=== PATIENT | female | born 2000 | race Two or more races ===

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

== ENCOUNTER 2021-05-31 11:51 | Emergency (ER) | payer MEDICAID ==
[~2021-05-31] VITALS: Ht 149.9 cm; Wt 46.3 kg
[2021-05-31] MEDS ORDERED: SODIUM CHLORIDE 0.9% 500 ML IV ONE (12:00)
[2021-05-31 12:49] LABS: Basophils # (auto) 0 10 ^3/uL (0-0.2); Basophils % (auto) 0.5 % (0.0-2.0); Eosinophils # (auto) 0.1 10 ^3/uL (0-0.8); Hematocrit 40.1 % (36.0-46.0); Hemoglobin 13.4 g/dL (12.2-16.2); Lymphocytes # (auto) 1.4 10 ^3/uL (0.4-5.4); Lymphocytes % (auto) 15.2 % (10.0-50.0); Mean Corpuscular Hemoglobin 28.3 pg (28.0-32.0); Mean Corpuscular Hgb Conc. 33.3 g/dL (32.0-36.0); Mean Corpuscular Volume 84.8 fL (80.0-100.0); Monocytes # (auto) 0.5 10 ^3/uL (0-1.3); Monocytes % (auto) 5.4 % (0.0-12.0); Neutrophils # (auto) 7.1 10 ^3/uL (1.6-8.6); Neutrophils % (auto) 77.9 % (37.0-80.0); Nucleated Red Blood Cells % 0.1 %; Red Blood Cells 4.73 10^6/uL (4.0-5.20); Red Cell Distribution Width 22.8 % (11.8-14.3); White Blood Cell 9.1 10^3/uL (4.4-10.8)
[2021-05-31 13:03] LABS: Albumin 3.8 g/dL (3.4-5.0); Calcium 8.9 mg/dL (8.5-10.1); Potassium 4.5 mmol/L (3.5-5.1)
[2021-05-31 13:05] LABS: BUN/Creatinine Ratio 9.6
[2021-05-31 13:07] LABS: Bilirubin, Total 0.3 mg/dL (0.2-1.0); Total Protein 7.8 g/dL (6.4-8.2)
[2021-05-31 13:33] LABS: Urine Amorphous Crystal MOD /hpf (None Seen); Urine Bacteria FEW /hpf (None Seen); Urine Blood Negative /uL (Negative); Urine Mucus FEW (None Seen); Urine WBC 59 /hpf (0 - 5)
[2021-05-31] MEDS ORDERED: CEPH-322 PO (14:14)
[2021-05-31 14:19] VITALS: BP 137/82
== END 2021-05-31 14:20 | disposition home or self-care (01) ==
LOC: ER 11:51 → EDBD 11:51 → ER 14:20
DX: O26.892 Other specified pregnancy related conditions, second trimester (principal); R10.31 Right lower quadrant pain; R10.32 Left lower quadrant pain; Z3A.19 19 weeks gestation of pregnancy
CPT/HCPCS: 36415; 76805; 80053; 81001; 84702; 85025; 96360; 96361; 99284; J7040

== ENCOUNTER → 2021-10-02 | Outpatient (CLI) | payer MEDICAID ==
[~2021-10-02] MED LIST: CEPH-322 PO
[2021-10-02 12:05] LABS: Basophils # (auto) 0 10 ^3/uL (0-0.2); Basophils % (auto) 0.5 % (0.0-2.0); Eosinophils # (auto) 0.1 10 ^3/uL (0-0.8); Lymphocytes # (auto) 1.2 10 ^3/uL (0.4-5.4); Monocytes # (auto) 0.4 10 ^3/uL (0-1.3); Neutrophils # (auto) 4.4 10 ^3/uL (1.6-8.6); White Blood Cell 6.1 10^3/uL (4.4-10.8)
[2021-10-02 12:07] LABS: Eosinophils % (auto) 1.2 % (0.0-7.0); Hematocrit 28.1 % (36.0-46.0); Lymphocytes % (auto) 19.9 % (10.0-50.0); Mean Corpuscular Volume 78.2 fL (80.0-100.0); Monocytes % (auto) 6.3 % (0.0-12.0); Neutrophils % (auto) 72.1 % (37.0-80.0); Nucleated Red Blood Cells % 0.1 %; Red Blood Cells 3.59 10^6/uL (4.0-5.20); Red Cell Distribution Width 19.3 % (11.8-14.3)
[2021-10-02 12:55] LABS: Alcohol, Urine < 3.0 mg/dL (0-10); Amphetamine Screen, Urine NEGATIVE (NEGATIVE); Barbiturate Scree,Urine NEGATIVE (NEGATIVE); Benzodiazephine Screen, Urine NEGATIVE (NEGATIVE); Cannabinoid Screen, Urine POSITIVE (NEGATIVE); Cocaine Screen, Urine NEGATIVE (NEGATIVE); Opiate Scree,Urine NEGATIVE (NEGATIVE); Phencyclidine Screen, Urine NEGATIVE (NEGATIVE)
[2021-10-03 07:06] LABS: RPR Non Reactive (Non Reactive)
== END | disposition home or self-care (01) ==
LOC: LAB 11:24
PROVIDERS: ATTEND Obstetrics & Gynecology Obstetrics
DX: Z34.00 Encounter for supervision of normal first pregnancy, unspecified trimester (principal); Z31.430 Encounter of female for testing for genetic disease carrier status for procreative management; N39.0 Urinary tract infection, site not specified
CPT/HCPCS: 36415; 80307; 83036; 84112; 84702; 85025; 86592; 86703; 86762; 86850; 86900; 86901; 87086; 87340

== ENCOUNTER → 2021-10-09 | Outpatient (CLI) | payer MEDICAID ==
[2021-10-09 15:40] LABS: Basophils # (auto) 0 10 ^3/uL (0-0.2); Eosinophils % (auto) 0.6 % (0.0-7.0); Monocytes # (auto) 0.7 10 ^3/uL (0-1.3)
[2021-10-09 15:41] LABS: Basophils % (auto) 0.4 % (0.0-2.0); Eosinophils # (auto) 0.1 10 ^3/uL (0-0.8); Hematocrit 27.6 % (36.0-46.0); Hemoglobin 8.5 g/dL (12.2-16.2); Lymphocytes % (auto) 12.5 % (10.0-50.0); Mean Corpuscular Hemoglobin 24.1 pg (28.0-32.0); Mean Corpuscular Hgb Conc. 30.9 g/dL (32.0-36.0); Mean Corpuscular Volume 77.8 fL (80.0-100.0); Monocytes % (auto) 7.9 % (0.0-12.0); Neutrophils # (auto) 6.5 10 ^3/uL (1.6-8.6); Neutrophils % (auto) 78.6 % (37.0-80.0); Red Blood Cells 3.54 10^6/uL (4.0-5.20); Red Cell Distribution Width 19.7 % (11.8-14.3); White Blood Cell 8.2 10^3/uL (4.4-10.8)
[2021-10-09 16:08] LABS: Alcohol, Urine < 3.0 mg/dL (0-10); Amphetamine Screen, Urine NEGATIVE (NEGATIVE); Barbiturate Scree,Urine NEGATIVE (NEGATIVE); Benzodiazephine Screen, Urine NEGATIVE (NEGATIVE); Cannabinoid Screen, Urine POSITIVE (NEGATIVE); Cocaine Screen, Urine NEGATIVE (NEGATIVE); Opiate Scree,Urine NEGATIVE (NEGATIVE); Phencyclidine Screen, Urine NEGATIVE (NEGATIVE)
== END | disposition home or self-care (01) ==
LOC: LAB 15:10
PROVIDERS: ATTEND Obstetrics & Gynecology Obstetrics
DX: Z31.430 Encounter of female for testing for genetic disease carrier status for procreative management (principal); N39.0 Urinary tract infection, site not specified
CPT/HCPCS: 36415; 80307; 85025; 86703; 86762; 86850; 86900; 86901; 87086; 87340

== ENCOUNTER 2021-11-09 09:53 | Observation (INO) | payer MEDICAID ==
[~2021-11-09] VITALS: Ht 149.9 cm; Wt 54.4 kg
[2021-11-09] MEDS ORDERED: PROMETHAZINE HCL 6.25 MG/5 ML ORAL SYRUP PO ONE (11:30)
[2021-11-09] MEDS ORDERED: PREN-96 PO ×2 (11:35)
== END 2021-11-09 12:06 | disposition home or self-care (01) ==
LOC: UNDOADMOB 09:53 → LDRP 09:53
PROVIDERS: ADMIT Obstetrics & Gynecology; ATTEND Obstetrics & Gynecology
DX: O62.9 Abnormality of forces of labor, unspecified (principal); O99.323 Drug use complicating pregnancy, third trimester; F12.90 Cannabis use, unspecified, uncomplicated; Z3A.37 37 weeks gestation of pregnancy
CPT/HCPCS: 59025; 81002; 94760; G0378

== ENCOUNTER 2021-11-09 18:40 | Inpatient (IN) | payer MEDICAID ==
[~2021-11-09] VITALS: Ht 149.9 cm; Wt 57.2 kg
[2021-11-09 11:20] VITALS: BP 129/72
[~2021-11-09 18:40] MED LIST changes: +PREN-96 PO
[2021-11-09] MEDS ORDERED: LIDOCAINE 2%HCL (LOCAL ANESTH.) INJ 10ml MDV IJ PRN (19:00)
[2021-11-09] MEDS ORDERED: BUTORPHANOL TARTRATE 2 MG/1 ML VIAL IV PRN ×2 (19:00)
[2021-11-09] MEDS ORDERED: NS/OXYTOCIN 20UNITS 1,000 ML IV SCH (19:00)
[2021-11-09] MEDS ORDERED: DERMOPLAST 60ML BOTTLE TOP PRN (19:00)
[2021-11-09] MEDS ORDERED: PHISODERM TOP SOLN 240ML BTL TOP PRN (19:00)
[2021-11-09] MEDS ORDERED: LACTATED RINGER'S 1,000 ML IV SCH (19:00)
[2021-11-09] MEDS ORDERED: WITCH HAZEL-GLYCERIN PAD TOP PRN (19:00)
[2021-11-09] MEDS ORDERED: PROMETHAZINE HCL 25 MG/ML 1ML IV PRN (19:00)
[2021-11-09 20:09] LABS: Basophils # (auto) 0 10 ^3/uL (0-0.2); Eosinophils # (auto) 0 10 ^3/uL (0-0.8); Eosinophils % (auto) 0.2 % (0.0-7.0); Lymphocytes # (auto) 1.2 10 ^3/uL (0.4-5.4); Neutrophils # (auto) 6.3 10 ^3/uL (1.6-8.6); Neutrophils % (auto) 78.7 % (37.0-80.0); Nucleated Red Blood Cells % 0.1 %
[2021-11-09 20:11] LABS: Basophils % (auto) 0.5 % (0.0-2.0); Hematocrit 31.9 % (36.0-46.0); Hemoglobin 9.9 g/dL (12.2-16.2); Lymphocytes % (auto) 14.6 % (10.0-50.0); Mean Corpuscular Hemoglobin 22.5 pg (28.0-32.0); Mean Corpuscular Volume 72.4 fL (80.0-100.0); Monocytes # (auto) 0.5 10 ^3/uL (0-1.3)
[2021-11-09] MEDS ORDERED: NS/OXYTOCIN 20UNITS 500 ML IV ONE ×2 (20:15→20:45)
[2021-11-09 20:17] LABS: Albumin 3.1 g/dL (3.4-5.0); Calcium 8.6 mg/dL (8.5-10.1); Potassium 3.4 mmol/L (3.5-5.1)
[2021-11-09 20:20] LABS: BUN/Creatinine Ratio 9.4; Bilirubin, Total 0.3 mg/dL (0.2-1.0); Total Protein 7.2 g/dL (6.4-8.2)
[2021-11-09 20:23] LABS: Red Cell Distribution Width 21.7 % (11.8-14.3)
[2021-11-09 20:32] LABS: INR 0.86 (0.9-1.15); Partial Thromboplastin Time 23.5 sec (24.6-33.4)
[2021-11-09 23:09] LABS: Amphetamine Screen, Urine NEGATIVE (NEGATIVE); Barbiturate Scree,Urine NEGATIVE (NEGATIVE); Benzodiazephine Screen, Urine NEGATIVE (NEGATIVE); Cannabinoid Screen, Urine POSITIVE (NEGATIVE); Cocaine Screen, Urine NEGATIVE (NEGATIVE); Opiate Scree,Urine NEGATIVE (NEGATIVE); Phencyclidine Screen, Urine NEGATIVE (NEGATIVE)
[2021-11-09] MEDS ORDERED: ONDANSETRON ODT 4 MG TAB PO PRN (23:15)
[2021-11-09] MEDS ORDERED: ACETAMINOPHEN 325 MG TAB PO PRN (23:15)
[2021-11-09 23:20] VITALS: BP 129/72
[2021-11-10 03:20] VITALS: BP 127/90
[2021-11-10] MEDS: IBUPROFEN 600 MG TAB PO PRN ×2 (09:04→20:17)
[2021-11-10 11:00] VITALS: BP 115/63
[2021-11-10 15:00] VITALS: BP 118/68
[2021-11-10 19:00] VITALS: BP 124/65
[2021-11-10 23:00] VITALS: BP 126/66
[2021-11-10 23:55] VITALS: BP 125/65
[2021-11-11 07:06] LABS: RPR Non Reactive (Non Reactive)
== END 2021-11-10 23:55 | disposition home or self-care (01) | DRG 560 ==
LOC: OBSVTOIN 18:40 → LDRP 18:40
PROVIDERS: ADMIT Obstetrics & Gynecology; ATTEND Obstetrics & Gynecology
PROC: 10E0XZZ Delivery of Products of Conception, External Approach (ICD-10-PCS; principal; 2021-11-09)
PROC: 0UQMXZZ Repair Vulva, External Approach (ICD-10-PCS; 2021-11-09)
DX: O71.82 Other specified trauma to perineum and vulva (principal); Z37.0 Single live birth; Z20.822 Contact with and (suspected) exposure to COVID-19; Z3A.37 37 weeks gestation of pregnancy
CPT/HCPCS: 36415; 59025; 59409; 80053; 80307; 85025; 85610; 85730; 86592; 86850; 86900; 86901; 94760; 96365; 96366; G0378; J2001

== ENCOUNTER → 2022-11-27 | Outpatient (CLI) | payer MEDICAID ==
[~2022-11-27] MED LIST changes: -CEPH-322 PO; +CEPH250C PO
[2022-11-27 13:47] LABS: Basophils # (auto) 0 10 ^3/uL (0-0.2); Eosinophils # (auto) 0.1 10 ^3/uL (0-0.8); Hemoglobin 9.5 g/dL (12.2-16.2); Lymphocytes # (auto) 1.3 10 ^3/uL (0.4-5.4); Monocytes # (auto) 0.4 10 ^3/uL (0-1.3); Nucleated Red Blood Cells % 0.1 %
[2022-11-27 13:48] LABS: Basophils % (auto) 0.5 % (0.0-2.0); Hematocrit 30.6 % (36.0-46.0); Mean Corpuscular Hemoglobin 23.2 pg (28.0-32.0); Mean Corpuscular Hgb Conc. 30.9 g/dL (32.0-36.0); Mean Corpuscular Volume 74.9 fL (80.0-100.0); Monocytes % (auto) 6.2 % (0.0-12.0); Neutrophils # (auto) 4.9 10 ^3/uL (1.6-8.6); Neutrophils % (auto) 72.3 % (37.0-80.0); Red Blood Cells 4.08 10^6/uL (4.0-5.20); White Blood Cell 6.7 10^3/uL (4.4-10.8)
[2022-11-27 13:52] LABS: Red Cell Distribution Width 20.5 % (11.8-14.3)
[2022-11-27 14:15] LABS: Anisocytosis Slight; Hypochromia Moderate; Platelet Estimate Adequate
[2022-11-27 14:19] LABS: Alcohol, Urine < 3.0 mg/dL (0-10); Amphetamine Screen, Urine NEGATIVE (NEGATIVE); Barbiturate Scree,Urine NEGATIVE (NEGATIVE); Benzodiazephine Screen, Urine NEGATIVE (NEGATIVE); Cannabinoid Screen, Urine POSITIVE (NEGATIVE); Cocaine Screen, Urine NEGATIVE (NEGATIVE); Opiate Scree,Urine NEGATIVE (NEGATIVE)
[2022-11-27 14:27] LABS: Phencyclidine Screen, Urine NEGATIVE (NEGATIVE)
[2022-11-28 06:06] LABS: RPR Non Reactive (Non Reactive)
[2022-11-28 11:07] LABS: Treponema Pallidum Ab LC Non Reactive (Non Reactive)
== END | disposition home or self-care (01) ==
LOC: LAB 13:22
PROVIDERS: ATTEND Obstetrics & Gynecology
DX: Z11.3 Encounter for screening for infections with a predominantly sexual mode of transmission (principal); N39.0 Urinary tract infection, site not specified
CPT/HCPCS: 36415; 80307; 83036; 84112; 84144; 84702; 85025; 86592; 86703; 86762; 86850; 86900; 86901; 87086; 87340

== ENCOUNTER → 2022-12-12 | Outpatient (CLI) | payer MEDICAID ==
[2022-12-12 09:17] LABS: Eosinophils # (auto) 0.1 10 ^3/uL (0-0.8); Hemoglobin 8.8 g/dL (12.2-16.2); Lymphocytes # (auto) 1.4 10 ^3/uL (0.4-5.4)
[2022-12-12 09:20] LABS: Basophils # (auto) 0.1 10 ^3/uL (0-0.2); Basophils % (auto) 0.8 % (0.0-2.0); Eosinophils % (auto) 1.9 % (0.0-7.0); Hematocrit 28.5 % (36.0-46.0); Lymphocytes % (auto) 18.8 % (10.0-50.0); Mean Corpuscular Hemoglobin 22.4 pg (28.0-32.0); Mean Corpuscular Volume 72.1 fL (80.0-100.0); Monocytes # (auto) 0.5 10 ^3/uL (0-1.3); Monocytes % (auto) 7.3 % (0.0-12.0); Neutrophils # (auto) 5.3 10 ^3/uL (1.6-8.6); Neutrophils % (auto) 71.2 % (37.0-80.0); Red Blood Cells 3.95 10^6/uL (4.0-5.20); White Blood Cell 7.4 10^3/uL (4.4-10.8)
[2022-12-12 09:32] LABS: Red Cell Distribution Width 20.4 % (11.8-14.3)
== END | disposition home or self-care (01) ==
LOC: LAB 08:41
PROVIDERS: ATTEND Obstetrics & Gynecology
DX: Z34.00 Encounter for supervision of normal first pregnancy, unspecified trimester (principal)
CPT/HCPCS: 36415; 82951; 85025

== ENCOUNTER 2023-01-02 12:15 | Observation (INO) | payer MEDICAID ==
[~2023-01-02] VITALS: Ht 149.9 cm; Wt 56.7 kg
[2023-01-02] MEDS ORDERED: NIF10C PO (13:38)
[2023-01-02] MEDS ORDERED: BETAMETHASONE ACET (30mg/5ml) 5ml Vial 6mg/ml IM ONE (13:45)
[2023-01-02 14:00] LABS: Fern Testing Negative
[2023-01-03] MEDS ORDERED: NITR-87 PO ×3 (14:39→14:41)
== END 2023-01-02 14:36 | disposition home or self-care (01) ==
LOC: LDRP 12:15
PROVIDERS: ADMIT Obstetrics & Gynecology; ATTEND Obstetrics & Gynecology
DX: O60.03 Preterm labor without delivery, third trimester (principal); O42.92 Full-term premature rupture of membranes, unspecified as to length of time between rupture and onset of labor; O36.8130 Decreased fetal movements, third trimester, not applicable or unspecified; Z3A.34 34 weeks gestation of pregnancy
CPT/HCPCS: 59025; 81002; 84112; 96372; G0378; J0702; Q0114

== ENCOUNTER 2023-01-03 13:45 | Observation (INO) | payer MEDICAID ==
[~2023-01-03] VITALS: Ht 149.9 cm; Wt 56.7 kg
[~2023-01-03 13:45] MED LIST changes: +NIF10C PO
[2023-01-03] MEDS ORDERED: BETAMETHASONE ACET (30mg/5ml) 5ml Vial 6mg/ml IM ONE (14:15)
[2023-01-03] MEDS ORDERED: NITR-87 PO ×3 (14:39→14:41)
== END 2023-01-03 15:00 | disposition home or self-care (01) ==
LOC: LDRP 13:45
PROVIDERS: ADMIT Obstetrics & Gynecology; ATTEND Obstetrics & Gynecology
DX: O60.03 Preterm labor without delivery, third trimester (principal); O23.43 Unspecified infection of urinary tract in pregnancy, third trimester; O42.913 Preterm premature rupture of membranes, unspecified as to length of time between rupture and onset of labor, third trimester; Z3A.36 36 weeks gestation of pregnancy
CPT/HCPCS: 59025; 81002; 94760; 96372; G0378

== ENCOUNTER 2023-01-10 11:07 | Inpatient (IN) | payer MEDICAID ==
[~2023-01-10] VITALS: Ht 149.9 cm; Wt 56.7 kg
[~2023-01-10 11:07] MED LIST changes: -CEPH250C PO; +NITR-87 PO
[2023-01-14] MEDS ORDERED: PENICILLIN G POT 5MIL/D5 50ML 50 ML IV ONE ×2 (20:30→20:34)
[2023-01-14] MEDS ORDERED: LACTATED RINGER'S 1,000 ML IV SCH (20:30)
[2023-01-14] MEDS ORDERED: DERMOPLAST 60ML BOTTLE TOP PRN (20:30)
[2023-01-14] MEDS ORDERED: LIDOCAINE 2%HCL (LOCAL ANESTH.) INJ 20ML MDV IJ PRN (20:30)
[2023-01-14] MEDS ORDERED: PROMETHAZINE HCL 25 MG/ML 1ML IV PRN (20:30)
[2023-01-14] MEDS ORDERED: PHISODERM TOP SOLN 240ML BTL TOP PRN (20:30)
[2023-01-14] MEDS ORDERED: WITCH HAZEL-GLYCERIN PAD TOP PRN (20:30)
[2023-01-14] MEDS ORDERED: FERR1TAB31 PO (20:35)
[2023-01-14] MEDS ORDERED: METHYLERGONOVINE MALEATE 0.2 MG/ML AMP IM ONE (20:45)
[2023-01-14] MEDS ORDERED: CARBOPROST TROMETHAMINE 250 MCG/1ML VIAL IM ONE (20:45)
[2023-01-14] MEDS ORDERED: LACT. RINGERS/OXYTOCIN 20UNITS 500 ML IV ONE ×3 (20:45→21:45)
[2023-01-14 21:25] LABS: Basophils # (auto) 0 10 ^3/uL (0-0.2); Eosinophils # (auto) 0 10 ^3/uL (0-0.8); Eosinophils % (auto) 0.1 % (0.0-7.0); Hematocrit 28.7 % (36.0-46.0); Hemoglobin 8.7 g/dL (12.2-16.2); Lymphocytes # (auto) 1.2 10 ^3/uL (0.4-5.4)
[2023-01-14 21:27] LABS: Basophils % (auto) 0.4 % (0.0-2.0); Lymphocytes % (auto) 9.8 % (10.0-50.0); Mean Corpuscular Hemoglobin 20.7 pg (28.0-32.0); Mean Corpuscular Hgb Conc. 30.2 g/dL (32.0-36.0); Mean Corpuscular Volume 68.6 fL (80.0-100.0); Monocytes # (auto) 0.5 10 ^3/uL (0-1.3); Monocytes % (auto) 4.1 % (0.0-12.0); Neutrophils # (auto) 10.7 10 ^3/uL (1.6-8.6); Neutrophils % (auto) 85.6 % (37.0-80.0); Red Blood Cells 4.19 10^6/uL (4.0-5.20); White Blood Cell 12.5 10^3/uL (4.4-10.8)
[2023-01-14 21:30] LABS: Red Cell Distribution Width 21.3 % (11.8-14.3)
[2023-01-14] MEDS ORDERED: IBUPROFEN 600 MG TAB PO PRN (21:45)
[2023-01-14] MEDS ORDERED: ONDANSETRON ODT 4 MG TAB PO PRN (21:45)
[2023-01-14] MEDS ORDERED: ACETAMINOPHEN 325 MG TAB PO PRN (21:45)
[2023-01-14 21:46] LABS: Alanine Aminotransferase 10 U/L (7-40); Albumin 4.2 g/dL (3.2-4.8); Alkaline Phosphatase 308 U/L (46-116); Anion Gap 13 (5-15); Aspartate Aminotransferase 24 U/L (13-40); BUN/Creatinine Ratio 12.7 (10.0-20.0); Bilirubin, Total 0.8 mg/dL (0.2-1.0); Blood Urea Nitrogen 7 mg/dL (9-23); Calcium 9.2 mg/dL (8.5-10.1); Carbon Dioxide 16 mmol/L (20-30); Chloride 104 mmol/L (98-107); Glucose 99 mg/dL (74-106); Potassium 3.8 mmol/L (3.5-5.1); Sodium 133 mmol/L (136-145); Total Protein 7.4 g/dL (5.7-8.2)
[2023-01-14 21:59] LABS: INR 0.96 (0.9-1.15); Partial Thromboplastin Time 24.5 SEC (24.5-34.5); Prothrombin Time 10.1 sec (9.3-11.8)
[2023-01-14] MEDS: DOCUSATE SOD 100 MG CAP PO SCH (22:00)
[2023-01-14] MEDS ORDERED: LACT. RINGERS/OXYTOCIN 20UNITS 1,000 ML IV SCH (22:15)
[2023-01-14 22:30] LABS: Platelet Estimate Adequate
[2023-01-14 22:31] LABS: Anisocytosis Slight; Hypochromia Moderate
[2023-01-15] MEDS ORDERED: PENICILLIN G POTASSIUM 2,500,000 UNITS in D5W 5% 50 ML IV SCH (00:30)
[2023-01-15 03:00] VITALS: BP 118/77; PULSE 86; RESP 16; TEMP 98.2; O2SAT 97
[2023-01-15] MEDS: FERROUS SULFATE 325mg EC TAB PO SCH ×2 (06:40→22:00)
[2023-01-15 06:46] VITALS: BP 118/76; PULSE 69; RESP 17; TEMP 98.2; O2SAT 97
[2023-01-15 11:00] VITALS: BP 120/80; PULSE 74; RESP 17; TEMP 98.4; O2SAT 97
[2023-01-15 15:15] VITALS: BP 118/74; PULSE 78; RESP 17; TEMP 98.7; O2SAT 97
[2023-01-15 18:39] LABS: Urine Amorphous Crystal FEW /hpf (None Seen); Urine Bacteria NONE SEEN /hpf (None Seen); Urine Blood 3+ /uL (Negative); Urine Clarity HAZY (Clear); Urine Color Yellow (Yellow); Urine Mucus FEW (None Seen); Urine Protein, UAD 1+ (Negative); Urine Specific Gravity 1.014 (1.001-1.035); Urine WBC 45 /hpf (0 - 5); Urine pH 7.5 (5.0-8.0)
[2023-01-15 18:45] VITALS: BP 104/61; PULSE 74; RESP 16; TEMP 98.4; O2SAT 96
[2023-01-15 18:50] LABS: Amphetamine Screen, Urine Neg (NEGATIVE); Barbiturate Scree,Urine Neg (NEGATIVE); Benzodiazephine Screen, Urine Neg (NEGATIVE)
[2023-01-15 18:51] LABS: Cannabinoid Screen, Urine Pos (NEGATIVE); Cocaine Screen, Urine Neg (NEGATIVE); Opiate Scree,Urine Neg (NEGATIVE); Phencyclidine Screen, Urine Neg (NEGATIVE)
[2023-01-15] MEDS: DOCUSATE SOD 100 MG CAP PO SCH (22:00)
[2023-01-15 23:19] VITALS: BP 110/68; PULSE 60; RESP 18; TEMP 98.6; O2SAT 95
[2023-01-16 03:00] VITALS: BP 120/81; PULSE 78; RESP 16; TEMP 98.7; O2SAT 96
[2023-01-16] MEDS: FERROUS SULFATE 325mg EC TAB PO SCH ×2 (05:24→06:00)
[2023-01-16 07:00] VITALS: BP 109/59; PULSE 85; RESP 17; TEMP 98.1; O2SAT 98
[2023-01-16 07:06] LABS: RPR Non Reactive (Non Reactive)
[2023-01-16] MEDS ORDERED: FERR30CA PO (07:54)
[2023-01-16] MEDS ORDERED: IBU600T PO (07:54)
[2023-01-16] MEDS ORDERED: CEPH250C PO (07:54)
[2023-01-16] MEDS ORDERED: DOCU-265 PO (07:54)
[2023-01-16 11:00] VITALS: BP 121/79; PULSE 86; RESP 16; TEMP 98.4; O2SAT 98
[2023-01-16 14:04] VITALS: TEMP 98.4
[2023-01-18 19:06] LABS: Treponema pallidum Ab (FTA-Ab) Non Reactive (Non Reactive)
== END 2023-01-16 14:00 | disposition home or self-care (01) | DRG 560 ==
LOC: LDRP 01-14 20:05 → OBSVTOIN 01-14 20:05 → LDRP 01-14 20:48
PROVIDERS: ADMIT Obstetrics & Gynecology; ATTEND Obstetrics & Gynecology
PROC: 10E0XZZ Delivery of Products of Conception, External Approach (ICD-10-PCS; principal; 2023-01-14)
DX: O60.14X0 Preterm labor third trimester with preterm delivery third trimester, not applicable or unspecified (principal); Z37.0 Single live birth; D64.9 Anemia, unspecified; O99.02 Anemia complicating childbirth; O77.0 Labor and delivery complicated by meconium in amniotic fluid; Z3A.36 36 weeks gestation of pregnancy
CPT/HCPCS: 36415; 59025; 59409; 76805; 80053; 80307; 81001; 85025; 85610; 85730; 86592; 86850; 86900; 86901; 94760; 96360; 96365; 96366; G0378; J2540; J2590; J7060

== ENCOUNTER 2024-11-24 18:31 | Observation (INO) | payer MEDICAID ==
[~2024-11-24] VITALS: Ht 149.9 cm; Wt 63.5 kg
[~2024-11-24 18:31] MED LIST changes: +CEPH250C PO; +DOCU-265 PO; +FERR30CA PO; +IBU600T PO; -NIF10C PO; -NITR-87 PO
[2024-11-24 19:48] LABS: Hematocrit 31.6 % (36.0-46.0); Mean Corpuscular Hemoglobin 26.8 pg (28.0-32.0); Nucleated Red Blood Cells % 0.0 %
[2024-11-24 19:49] LABS: Hemoglobin 10.2 g/dL (12.2-16.2); Mean Corpuscular Volume 83.0 fL (80.0-100.0)
--- NOTE | 2024-11-24 19:59 | DVHDS2 ---
Physician Discharge Progress N Final Diagnosis: 24yo IUP@24.4wks Hypokalemia Iron deficiency anemia Meth use Marijuana use No PNC Cat I tracing Bipolar disorder Problems List: (1) 24 weeks gestation of (2) Bipolar disease during (3) Amphetamine use (4) Marijuana use during (5) Iron deficiency anemia of mother during Operations or Procedures: Operations or Procedures S: 24yo IUP@24.4wks (based on LMP of 06/05/24). pt presents to unit for c/o back pain that started yesterday 11/23/24 at 1700, pain 6/10. reports having headache and seeing stars. No care during this , found out she was at 21 weeks and states was too late to get an . PMH: denies any medical history PSH: in 2023 OB hx: #1 - SAB in 2019 #2 - viable baby girl @ 37 wks in 2021 #3 - viable baby boy @ 36 wks in 2022 #4 - P C/S viable baby boy @ 32 wks in 2023 AIRCRAFT ENGINE ASSEMBLER hx: denies having any pap smear FMH: denies Social: stopped drinking and taking marijuana @ 21 wks Psych: diagnosed with bipolar in September 2024, but does not take prescribed med ROS: HEENT: pt states she has headache and seeing stars. GI: denies abdominal or epigastric pain : denies any burning or itching, denies UTI s/sx O: Appears well, alert and oriented x3, well spoken VSS, see CPN Lungs: clear, no adventitious sound Heart: normal abdomen: soft, no guarding or tenderness Musculoskeletal: tenderness on lower back Back pain and headache, resolved after Tylenol 1000mg PO and PO hydration OB complete WNL, no accreta/previa/abruption noted Laboratory Tests Test 11/24/24 19:23 11/24/24 19:30 Range/Units Urine Color Light-yellow Yellow Urine Clarity Turbid H Clear Urine pH 6.5 5.0-9.0 Urine Specific [place] 1.022 1.001-1.035 Urine Protein Negative Negative Urine Ketones Negative Negative Urine Blood Negative Negative /uL Urine Nitrite Negative Negative Urine Bilirubin Negative Negative Urine Urobilinogen Normal Negative mg/dL Urine Leukocyte Esterase 2+ Negative /uL Urine RBC 6 0 - 4 /hpf Urine Microscopic WBC 15 H 0-5 /HPF Urine Squamous Epithelial Cells Few <5 /hpf Urine Calcium Oxalate Crystals Few None Seen Urine Bacteria None seen None Seen /hpf Urine Creatinine 93.59 30.0-125.0 mg/dL Urine Protein/Creatinine Ratio 0.20 Urine Glucose Trace Normal mg/dL Urine Total Protein 19.1 H 1-14 mg/dL Urine Opiates Screen Neg NEGATIVE Urine Fentanyl Screen Neg NEGATIVE Urine Barbiturates Screen Neg NEGATIVE Urine Phencyclidine Screen Neg NEGATIVE Urine Amphetamines Screen Pos NEGATIVE Urine Benzodiazepines Screen Neg NEGATIVE Urine Cocaine Screen Neg NEGATIVE Urine Cannabinoids Screen Pos NEGATIVE White Blood Count 7.1 4.4-10.8 10^3/uL Red Blood Count 3.81 L 4.0-5.20 10^6/uL Hemoglobin 10.2 L 12.2-16.2 g/dL Hematocrit 31.6 L 36.0-46.0 % Mean Corpuscular Volume 83.0 80.0-100.0 fL Mean Corpuscular Hemoglobin 26.8 L 28.0-32.0 pg Mean Corpuscular Hemoglobin Concent 32.2 32.0-36.0 g/dL Red Cell Distribution Width 19.9 H 11.8-14.3 % Platelet Count 216 140-450 10^3/uL Mean Platelet Volume 8.3 6.9-10.8 fL Neutrophils (%) (Auto) 71.0 37.0-80.0 % Lymphocytes (%) (Auto) 19.2 10.0-50.0 % Monocytes (%) (Auto) 7.0 0.0-12.0 % Eosinophils (%) (Auto) 2.3 0.0-7.0 % Basophils (%) (Auto) 0.5 0.0-2.0 % Neutrophils # (Auto) 5.1 1.6-8.6 10 ^3/uL Lymphocytes # (Auto) 1.4 0.4-5.4 10 ^3/uL Monocytes # (Auto) 0.5 0-1.3 10 ^3/uL Eosinophils # (Auto) 0.2 0-0.8 10 ^3/uL Basophils # (Auto) 0 0-0.2 10 ^3/uL Nucleated Red Blood Cells 0.0 % Prothrombin Time 9.8 9.3-11.8 sec Prothrombin Time INR 0.92 0.9-1.15 Activated Partial Thromboplast Time 25.1 24.5-34.5 SEC Sodium Level 139 136-145 mmol/L Potassium Level 3.2 L 3.5-5.1 mmol/L Chloride Level 105 98-107 mmol/L Carbon Dioxide Level 24 20-31 mmol/L Anion Gap 10 5-15 Blood Urea Nitrogen 7 L 9-23 mg/dL Creatinine 0.38 L 0.550-1.02 mg/dL Glomerular Filtration Rate Calc 144 >90 mL/min BUN/Creatinine Ratio 18.4 10.0-20.0 Serum Glucose 75 74-106 mg/dL Uric Acid 1.5 L 3.1-7.8 mg/dL Calcium Level 8.4 L 8.7-10.4 mg/dL Total Bilirubin 0.2 0.2-1.0 mg/dL Aspartate Amino Transferase (AST) 29 13-40 U/L Alanine Aminotransferase (ALT) 22 7-40 U/L Alkaline Phosphatase 76 46-116 U/L Total Protein 6.0 5.7-8.2 g/dL Albumin 3.7 3.2-4.8 g/dL Treponema pallidum Antibody Non-reactive Negative Hepatitis B Surface Antigen Pending Hepatitis C Antibody Pending HIV (1&2) Antibody Negative Negative Rubella Antibody Positive A: 24yo IUP@24.4wks Hypokalemia Iron deficiency anemia Meth use Marijuana use No PNC Cat I tracing Bipolar disorder P: D/C home after K+ 40mEq PO tablet given Rx sent for PNV and iron Education on Pre-E warning signs. PTL/SAB precautions reviewed. Pt referred to [facility] to establish care. Dr. Doll consulted, agrees with POC. Condition on Discharge: Stable Disposition: Home Discharge Instructions: Diet: Regular Activity: No Restrictions, As Tolerated Activity comment: normal activity Medications: PNV Follow Up Care: Specialist: f/u with [facility] Discharge Statement: "Patient was advised to return to the ER or call 911 if any headaches, dizziness, shortness of breath, chest pain, abdominal pain, bleeding, fevers, or worsening of medical condition. Patient was counseled about treatment plan, medications, possible side effects, patientverbalized understanding. All questions were answered to the best of my ability. This discharge took greater then 30 minutes in planning, reviewing documentation, counseling the patient, and discussing with other team members." Discharge Care Plan Problem Pain Goals Pain controlled Know Treatments, Demonstrate care PRN, Verbalize understanding Take safety measures Adequate fluid volume, VS WNL Adequate fluid volume Skin remains intact Remain free of infection Instructions Take Rx medications Risk factors Visit Coding OBGYN Date of Service: Nov 24, 2024 Billing Provider: MIKEL BOYCE CNM WEIGHBRIDGE OPERATOR Common Visit Codes: 80125-XVIFXEL OBS CARE (HIGH) WEIGHBRIDGE OPERATOR Procedure Codes: 05791-39- NON-STRESS TEST ANNA THOMAS Nov 24, 2024 19:59
[2024-11-24 20:03] LABS: INR 0.92 (0.9-1.15); Partial Thromboplastin Time 25.1 SEC (24.5-34.5); Prothrombin Time 9.8 sec (9.3-11.8)
[2024-11-24 20:08] LABS: Alanine Aminotransferase 22 U/L (7-40); Albumin 3.7 g/dL (3.2-4.8); Alkaline Phosphatase 76 U/L (46-116); Anion Gap 10 (5-15); BUN/Creatinine Ratio 18.4 (10.0-20.0); Carbon Dioxide 24 mmol/L (20-31); Chloride 105 mmol/L (98-107); Glucose 75 mg/dL (74-106); Sodium 139 mmol/L (136-145); Total Protein 6.0 g/dL (5.7-8.2)
[2024-11-24 20:10] LABS: Bilirubin, Total 0.2 mg/dL (0.2-1.0); Blood Urea Nitrogen 7 mg/dL (9-23); Calcium 8.4 mg/dL (8.7-10.4); Potassium 3.2 mmol/L (3.5-5.1); Uric Acid 1.5 mg/dL (3.1-7.8)
[2024-11-24 20:14] LABS: Urine Protein, UAD Negative (Negative)
[2024-11-24 20:25] LABS: Protein, Urine 19.1 mg/dL (1-14)
[2024-11-24] MEDS: ACETAMINOPHEN 500 MG TAB or CAP PO ONE (20:26)
[2024-11-24 20:30] LABS: Cannabinoid Screen, Urine Pos (NEGATIVE)
[2024-11-24 20:31] LABS: Amphetamine Screen, Urine Pos (NEGATIVE); Barbiturate Scree,Urine Neg (NEGATIVE); Benzodiazephine Screen, Urine Neg (NEGATIVE); Cocaine Screen, Urine Neg (NEGATIVE); Opiate Scree,Urine Neg (NEGATIVE); Phencyclidine Screen, Urine Neg (NEGATIVE)
[2024-11-24] MEDS ORDERED: PREN-96 PO (20:35)
[2024-11-24] MEDS ORDERED: FER325T PO (20:48)
--- NOTE | 2024-11-24 20:49 | DVH ---
OB ULTRASOUND, LIMITED CLINICAL INDICATION: Placenta Integrity no care TECHNIQUE: Multiple grayscale ultrasound and M-mode images were obtained of the pelvis for evaluation of intrauterine . COMPARISON: US OB ULTRASOUND COMP GTR 14 WKS on DOS: 01/14/23 FINDINGS: A single living fetus is seen in transverse head right presentation. Biparietal diameter: 5.96 cm (24 weeks, 2 days) Head Circumference: 23.05 cm (25 weeks, 1 days) Abdomen Circumference: 19.15 cm (23 weeks, 6 days) Femur Length: 4.47 cm (24 weeks, 5 days) Estimated weight: 685 grams (+/- 102.84 grams). Placenta: Anterior, grade 0. Amniotic fluid: Visibly normal. XOCHILT 20.9 cm Three-vessel cord: Present. Cord insertion: Normal. heart rate: 152 beats/min. Cervix is 3.4 cm and closed The ventricles, posterior fossa, spine, 4-chamber heart, bilateral kidneys, stomach, and urinary blad guanako are grossly unremarkable. IMPRESSION: Single living intrauterine with an estimated gestational age of 24 weeks, 4 days, corresp onding to an estimated date of delivery of 03/12/2025.
[2024-11-24] MEDS: POTASSIUM CHL 20 Meq TABLET PO ONE (21:20)
== END 2024-11-24 21:28 | disposition home or self-care (01) ==
LOC: LDRP 18:31
PROVIDERS: ADMIT Obstetrics & Gynecology; ATTEND Obstetrics & Gynecology
DX: O99.284 Endocrine, nutritional and metabolic diseases complicating childbirth (principal); E87.6 Hypokalemia; O99.012 Anemia complicating pregnancy, second trimester; D50.9 Iron deficiency anemia, unspecified; O99.342 Other mental disorders complicating pregnancy, second trimester; F31.9 Bipolar disorder, unspecified; O99.322 Drug use complicating pregnancy, second trimester; F12.90 Cannabis use, unspecified, uncomplicated; F15.90 Other stimulant use, unspecified, uncomplicated; Z3A.24 24 weeks gestation of pregnancy; Z98.890 Other specified postprocedural states; Z79.899 Other long term (current) drug therapy; Z86.2 Personal history of diseases of the blood and blood-forming organs and certain disorders involving the immune mechanism
CPT/HCPCS: 36415; 76805; 80053; 80307; 81001; 81002; 82570; 84156; 84550; 85025; 85610; 85730; 86703; 86762; 86780; 86803; 86850; 86900; 86901; 87340; 94760; G0378; 59025

== ENCOUNTER 2025-02-12 13:10 | Inpatient (IN) | payer MEDICAID ==
[~2025-02-12] VITALS: Ht 149.9 cm; Wt 54.4 kg
[~2025-02-12 13:10] MED LIST changes: -CEPH250C PO; -DOCU-265 PO; +FER325T PO; -FERR30CA PO; -IBU600T PO
[2025-02-12] MEDS ORDERED: LIDOCAINE 2%HCL (LOCAL ANESTH.) INJ 20ML MDV IJ PRN (13:45)
[2025-02-12] MEDS ORDERED: BUTORPHANOL TARTRATE 2 MG/1 ML VIAL IV PRN ×2 (13:45)
[2025-02-12] MEDS: PENICILLIN G POT 5MIL/D5 50ML 50 ML IV ONE (13:58)
[2025-02-12] MEDS: LACTATED RINGER'S 1,000 ML IV SCH (13:58)
[2025-02-12] MEDS: NALOXONE HCL 0.4 MG/ML VIAL IV ONE (14:15)
[2025-02-12] MEDS: BETAMETHASONE ACET (30mg/5ml) 5ml Vial 6mg/ml IM ONE (14:28)
[2025-02-12] MEDS: fentaNYL CITRATE 100 MCG/2 ML VL ONE (14:30)
[2025-02-12] MEDS: ROPIVACAINE HCL 100 ML ONE (14:31)
[2025-02-12] MEDS: BETAMETHASONE ACET (30mg/5ml) 5ml Vial 6mg/ml ONE (14:32)
[2025-02-12] MEDS: fentaNYL 400mCg/200ml W ROPIVA 200 ML EPI SCH (14:32)
[2025-02-12] MEDS: PHISODERM TOP SOLN 240ML BTL TOP PRN (14:33)
[2025-02-12] MEDS: DERMOPLAST 60ML BOTTLE TOP PRN (14:33)
[2025-02-12] MEDS: WITCH HAZEL-GLYCERIN PAD TOP PRN (14:33)
[2025-02-12] MEDS: LACTATED RINGER'S 1,000 ML IV ONE (14:34)
[2025-02-12] MEDS: LACTATED RINGER'S 500 ML IV ONE (14:34)
[2025-02-12 14:43] LABS: Hemoglobin 9.5 g/dL (12.2-16.2)
[2025-02-12 14:44] LABS: Hematocrit 30.2 % (36.0-46.0); Mean Corpuscular Hemoglobin 22.7 pg (28.0-32.0); Mean Corpuscular Volume 71.8 fL (80.0-100.0); Nucleated Red Blood Cells % 0.1 %
--- NOTE | 2025-02-12 14:48 | DVHHP2 ---
OB CC & HPI Date Date of Admission: Feb 12, 2025 Patient Identification: : 5 Para: 3 EDC: Mar 12, 2025 EGA: 36WKS Chief Complaints: Reason for admission: active labor Admission Nurse Assessment Rev: No History of Present Complaints PT IS ADMITTED FOR ACTIVE LABOR,NO ROM OR VAG BLEEDING.PT HAS HAD NO CARE. SHE HAD CS FOR BREECH A YR AGO Past Medical History Cardiac: No pertinent Hx Pulmonary: No pertinent Hx Central Nervous System: No pertinent Hx GI: No pertinent Hx Hemotology/Oncology: No pertinent Hx Hepatobiliary: No pertinent Hx Psychiatric: No pertinent Hx Musculoskeletal: No pertinent Hx Rheumotologic: No pertinent Hx Infectious Disease: No peritnent Hx ENT: No pertinent Hx Renal/: No pertinent Hx Endocrine: No pertinent Hx Dermatology: No pertinent Hx Past Surgical History: OB History OB History Care: None Ultrasounds: No ultrasounds Obstetrical Complications: None Medical Complications: None Allergies: Coded Allergies: NO KNOWN ALLERGIES (Unverified , 01/03/23) Home Meds Active Scripts Ferrous Sulfate (FERROUS SULFATE) 325 Mg Tb, 1 TAB PO DAILY, #30 TAB 3 Refills Prov:MIKEL BOYCE CNM 11/24/24 Vit W/ Ferrous Fumara ( One Daily) Daily Tab, 1 TAB PO DAILY for 90 Days, #90 TAB 3 Refills Prov:MIKEL BOYCE CN 11/24/24 Current Medications Current Medications Medications (Trade) Dose Ordered Sig/Jennifer Route PRN Reason Start Time Stop Time Status Last Admin Lactated Ringer's 1,000 ml @ 125 mls/hr Q8H IV 02/12/25 13:45 02/12/25 13:58 Penicillin G Potassium [id number] units/Dextrose 50 ml @ 100 mls/hr Q4H IV 02/12/25 17:45 Witch Ame (Tucks) 1 pad PRN PRN TOP PERINEAL AREA DISCOMFORT 02/12/25 13:45 02/12/25 14:33 Sodium Lauryl Sulfate (Phisoderm) 240 ml PRN PRN TOP PERINEAL AREA DISCOMFORT 02/12/25 13:45 02/12/25 14:33 Benzocaine (Dermoplast) 1 applic PRN PRN TOP PERINEAL AREA DISCOMFORT 02/12/25 13:45 02/12/25 14:33 Butorphanol Tartrate (Stadol Injection) 1 mg Q4HPRN PRN IV MODERATE PAIN (4-6 PAIN SCALE) 02/12/25 13:45 Butorphanol Tartrate (Stadol Injection) 2 mg Q4HPRN PRN IV SEVERE PAIN (7-10 PAIN SCALE) 02/12/25 13:45 Lidocaine HCl (Xylocaine) 40 ml ONCE PRN IJ PERINEAL AREA DISCOMFORT 02/12/25 13:45 Fentanyl/ Ropivacaine 200 ml @ 0 mls/hr UD EPI 02/12/25 14:15 02/14/25 14:14 Family & Social History Family/Social History Blood Type: Unknown Rubella: unknown RPR/VDRL: Unknown GBS Status: Unknown HBsAG: Unknown Review of Systems Constitutional: No symptom reported Ears, Nose, & Throat: No symptom reported Eyes: No symptom reported Pulmonary/Respiratory: No symptom reported Cardiovascular: No symptom reported Gastrointestinal: No symptom reported Genitourinary: No symptom reported Musculoskeletal: No symptom reported Skin: No symptom reported Psychiatric: No symptom reported Endocrine: No symptom reported Hemotologic/Lymphatic: No symptom reported OB Admission Exam Physical Exam HEENT: TMs Normal, Fontanelles Normal, Nasal Mucosa Normal, Eyes non-injected, Oropharynx Normal, PERRLA, Moist Membranes, EOMI Heart: Rhythm Normal Lungs: Clear Abdomen: Non tender Extremities: Normal Reflexes: Normal Cervical Dilatation: 10cm Effacement: 100% Station: +1 Membranes: Intact Heart Rate: 130's Accelerations: Accelerations Present Decelerations: No Decelerations Short Term Variability: Present Railroad Brakeman Variability: Average (6-25) Contractions on Admission: < 5 Minutes Apart Intensity: Moderate OB Plan Plan Admitting Diagnosis: IUP AT 36 WKS IN ACTIVE Labor PREVIOUS CSX1 DESIRES NO CARE Plan: Expectant Management Other Plan: INFORMED CONSENT OBTAINED,RISKS AND COMPL OF RDS,RUPTURE UTERUS D/W PT ALL QUESTIONS ANSWERED,PT FULLY UNDERSTANDS WISHES TO DELIVER VAG Visit Coding OBGYN Date of Service: Feb 12, 2025 Billing Provider: ASIF BARBOSA DO APPRENTICE/LINEMAN Common Visit Codes: [id number] OBS CARE (HIGH) APPRENTICE/LINEMAN Procedure Codes: 14600-67- NON-STRESS TEST ASIF BARBOSA DO Feb 12, 2025 14:47
--- NOTE | 2025-02-12 14:50 | EPIDURAL ---
Anesthesia Procedural Note - Epidural Informed consent obtained?: Yes Medication Administered: Fentanyl 100 mcg Spinal level of insertion: L4-L5 Test dose of lidocaine & Epine: Negative Infusion started: Yes Start time: 14:10 End time: 14:30 Procedure description Procedure description: Called for labor epidural. Patient is here in precipitous labor, 6cm dilated. Patient has a history of previous c/section 1 year ago, requesting epidural. I discussed the placement of an epidural catheter to use for pain relief and also for c/section. Informed consent for CSE obtained. Sitting position, sterile prep and drape. Time out done. L4-5 space infiltrated with 1% lido. Epidural needle placed with AUDELIA at 5cm. 25G spinal needle +clear CSF. 20mcg fentanyl given IT. Epidural catheter secured at 10cm. Aspiration and test dose (3cc 1.5% lido with epi) negative. 80mcg fentanyl given via epidural. Patient reports good pain relief. Re-check of cervix is 9.5cm dilated. 0.2% ropivacaine infusion started. Will follow as needed. ASHLEY VAZQUEZ MD Feb 12, 2025 14:50
--- NOTE | 2025-02-12 14:52 | DVH ---
LIMITED OB ULTRASOUND > 14 WKS: HISTORY: R/O Acreta/No PNC TECHNIQUE: Multiple real-time grayscale images of the gravid uterus with duplex Doppler color flow an d M-mode spectral analysis. TRANSDUCER: Transabdominal FINDINGS: IUP single live fetus at 33 weeks 6 days +/-2 weeks 3 days based on composite averages of the BPD, he ad circumference, abdominal circumference and femur length Estimated weight 2303 g plus or minus 368.48 g grams heart rate 155 beats per minute XOCHILT unable to be obtained patient in active labor MVP: 3.4 cm Cervix not visualized Cephalic Presentation Anterior Grade 2-3 Placenta without previa or abruption. BPD: Not obtained HC: Not obtained AC: 29.41 cm consistent with 33 weeks 3 days FL: 6.65 cm consistent with [address] Doll and was informed of findings at 2:15 p.m. On 02/12/2025 IMPRESSION: 1. IUP single live fetus at AUA corresponding to an SILVIO of 03/27/2025. 2. FHR: 155 beats per minute 3. position cephalic 4. Placenta anterior limited detail patient in active labor.
[2025-02-12 14:57] LABS: Urine Protein, UAD 1+ (Negative); Urine WBC Clumps PRESENT /hpf (None Seen)
[2025-02-12 14:57] LABS: Alanine Aminotransferase 11 U/L (7-40); Albumin 3.8 g/dL (3.2-4.8); Anion Gap 9 (5-15); Calcium 8.7 mg/dL (8.7-10.4); Carbon Dioxide 24 mmol/L (20-31); Chloride 103 mmol/L (98-107); Potassium 3.5 mmol/L (3.5-5.1); Sodium 136 mmol/L (136-145); Total Protein 6.3 g/dL (5.7-8.2)
[2025-02-12 14:58] LABS: Bilirubin, Total 0.6 mg/dL (0.2-1.0)
[2025-02-12 14:59] LABS: Alkaline Phosphatase 200 U/L (46-116); BUN/Creatinine Ratio 11.4 (10.0-20.0); Blood Urea Nitrogen < 5 mg/dL (9-23); Glucose 68 mg/dL (74-106)
[2025-02-12 15:02] LABS: INR 0.93 (0.9-1.15); Partial Thromboplastin Time 25.1 SEC (24.5-34.5); Prothrombin Time 9.9 sec (9.3-11.8)
[2025-02-12 15:06] LABS: Cannabinoid Screen, Urine Pos (NEGATIVE)
[2025-02-12 15:07] LABS: Amphetamine Screen, Urine Pos (NEGATIVE); Barbiturate Scree,Urine Neg (NEGATIVE); Benzodiazephine Screen, Urine Neg (NEGATIVE); Cocaine Screen, Urine Neg (NEGATIVE); Opiate Scree,Urine Neg (NEGATIVE); Phencyclidine Screen, Urine Neg (NEGATIVE)
--- NOTE | 2025-02-12 15:09 | LDN2 ---
Labor and Delivery Note Date 02/12/25 Age 24 5 Para 4 AB 1 EDC 11-28 EGA 36WKS Diagnosis ACTIVE LABOR,NO CARE,PREVIOUS CS,DESIRES Vaginal Delivery: VTX Vacuum Assisted: No Placenta: Spontaneous Sex: Female Apgars 8-9 Nuchal Cord Transected: Yes Amniotic Fluid: Clear Anesthesia EPIDURAL Episiotomy: No Extension: Yes (1ST DEG PERIUERTHRAL LAC) Repaired with 2-0 CHROMIC EBL 300ML Labs Laboratory Tests 11/24/24 19:30: Hepatitis B Surface Antigen Negative, HIV (1&2) Antibody Negative, Rubella Antibody Positive Blood Bank 11/24/24 19:30: Blood Type B POSITIVE Complications NONE Conditions STABLE Comments/Significant Med Brittney SPEC EXAM NO CXAL LAC,CORD PH 7.4 Visit Coding OBGYN Date of Service: Feb 12, 2025 Billing Provider: ASIF BARBOSA DO ROOF DESIGNER Common Visit Codes: [id number]-[id number] OBS CARE (HIGH) ROOF DESIGNER Procedure Codes: 44666-SRSI ONLY ASIF BARBOSA DO Feb 12, 2025 15:09
[2025-02-12] MEDS: LACT. RINGERS/OXYTOCIN 20UNITS 500 ML IV ONE ×2 (15:19→15:22)
[2025-02-12] MEDS: METHYLERGONOVINE MALEATE 0.2 MG/ML AMP IM ONE (15:19)
[2025-02-12] MEDS ORDERED: ONDANSETRON ODT 4 MG TAB PO PRN (15:30)
[2025-02-12] MEDS ORDERED: PENICILLIN G POTASSIUM 2,500,000 UNITS in D5W 5% 50 ML IV SCH (17:45)
[2025-02-12 19:00] VITALS: BP 134/82; PULSE 82; RESP 16; TEMP 98.6
[2025-02-12 23:06] VITALS: BP 136/86; PULSE 76; RESP 18; TEMP 98
[2025-02-13] MEDS: IBUPROFEN 600 MG TAB PO PRN (00:42)
[2025-02-13 03:00] VITALS: BP 120/63; PULSE 84; RESP 15; TEMP 97.9
--- NOTE | 2025-02-13 03:57 | DVHPN2 ---
Progress Note Date Seen: Feb 13, 2025 Subjective Claudette is resting in bed with family member at bedside SUBJECTIVE -Lochia minimal -Tolerating regular diet well. -Pain relieved with oral medication PRN -Ambulating and voiding well w/o feeling lightheaded or dizzy. -Passing flatus but no BM yet -Bottle feeding -Reports breasts feeling full and mild back pain vital signs Vital Sign Date Time Temp Pulse Resp B/P (MAP) Pulse Ox O2 Delivery O2 Flow Rate FiO2 02/12/25 23:06 98.0 76 18 136/86 (103) 98.0 02/12/25 19:00 Room Air Total Intake and Output 02/12/25 02/12/25 02/13/25 15:00 23:00 07:00 Output Total 600 ml 600 ml Balance -600 ml -600 ml medications Current Medications Medications Dose Ordered Sig/Jennifer Route Start Time Stop Time Status Last Admin Dose Admin Lactated Ringer's 1,000 ml @ 125 mls/hr Q8H IV 02/12/25 13:45 02/12/25 13:58 125 MLS/HR Penicillin G Potassium [id number] units/Dextrose 50 ml @ 100 mls/hr Q4H IV 02/12/25 17:45 Witch Ame 1 pad PRN PRN TOP 02/12/25 13:45 02/12/25 14:33 1 PAD Sodium Lauryl Sulfate 240 ml PRN PRN TOP 02/12/25 13:45 02/12/25 14:33 240 ML Benzocaine 1 applic PRN PRN TOP 02/12/25 13:45 02/12/25 14:33 1 APPLIC Butorphanol Tartrate 1 mg Q4HPRN PRN IV 02/12/25 13:45 Butorphanol Tartrate 2 mg Q4HPRN PRN IV 02/12/25 13:45 Lidocaine HCl 40 ml ONCE PRN IJ 02/12/25 13:45 Fentanyl/ Ropivacaine 200 ml @ 0 mls/hr UD EPI 02/12/25 14:15 02/14/25 14:14 Ibuprofen 600 mg Q6HP PRN PO 02/12/25 15:30 02/13/25 00:42 600 MG Acetaminophen 650 mg Q4HP PRN PO 02/12/25 15:30 Ondansetron HCl 4 mg Q4HPRN PRN PO 02/12/25 15:30 laboratory and microbiology Laboratory Tests 02/12/25 13:55 Test 02/12/25 13:55 Range/Units Serum Glucose 68 L 74-106 mg/dL Objective OBJECTIVE -A&O x4. No apparent distress. Affect appropriate -Afebrile, VSS -Chest: heart and lung sounds normal. -Breasts: Nipples intact w/o cracks or soreness -Abdomen: normal BS, soft, non-tender, no rebound or guarding, fundus firm @ U- 1, lochia minimal -Perineum: deferred -Extremities: no edema or tenderness Problems(with codes): (1) Vaginal after () Assessment/Plan ASSESSMENT -24 yo now ppd #1 s/p doing well. -Blood Type: B+ -Rubella Immune PLAN -Continue pain management with oral medications as previously ordered -Increase fluid intake and fiber in diet to promote regular bowel movements, Laxative PRN -Encouraged patient to continue taking vitamin and iron -Educated patient on self care, including cessation as desired. Answered all pt questions and concerns -Gave patient heat packs for back pain and abdominal binder to help support back and pelvic floor -Continue routine care Plan discussed with: Patient, Other (Family member) Visit Coding OBGYN Date of Service: Feb 13, 2025 Billing Provider: ANA DOE CNM TESTING AND REGULATING TECHNICIAN Common Visit Codes: [id number] INP/OBS CARE(MOD) ANA DOE CNM Feb 13, 2025 03:56
[2025-02-13] MEDS: ACETAMINOPHEN 325 MG TAB PO PRN (05:10)
[2025-02-13 07:15] VITALS: BP 121/72; PULSE 80; RESP 16; TEMP 98.1
[2025-02-13 10:29] LABS: Hematocrit 29.2 % (36.0-46.0); Hemoglobin 9.2 g/dL (12.2-16.2); Nucleated Red Blood Cells % 0.0 %
[2025-02-13 10:31] LABS: Mean Corpuscular Hemoglobin 22.8 pg (28.0-32.0); Mean Corpuscular Volume 72.7 fL (80.0-100.0)
[2025-02-13 11:15] VITALS: BP 123/68; PULSE 84; RESP 14; TEMP 98.2
[2025-02-13] MEDS ORDERED: IBU600T PO (14:44)
--- NOTE | 2025-02-13 14:48 | DVHDS2 ---
Physician Discharge Progress N Final Diagnosis: Spontaneous labor with (late) delivery at 36 wk, Drug use, no care Operations or Procedures: Operations or Procedures Vaginal after section () Condition on Discharge: Good Disposition: Home Discharge Instructions: Diet: Regular Activity: Light activity Activity comment: Pelvic rest x 6 wk Follow Up/Referral: [address] Doll Medications: Ibuprofen PRN pain eRx sent Follow Up Care: Discharge Statement: "Patient was advised to return to the ER or call 911 if any headaches, dizziness, shortness of breath, chest pain, abdominal pain, bleeding, fevers, or worsening of medical condition. Patient was counseled about treatment plan, medications, possible side effects, patientverbalized understanding. All questions were answered to the best of my ability. This discharge took greater then 30 minutes in planning, reviewing documentation, counseling the patient, and discussing with other team members." Visit Coding OBGYN Date of Service: Feb 13, 2025 Billing Provider: LORAINE HARRIS DO TRUCK SERVICE MANAGER Common Visit Codes: [id number]-MVZ/OBS DISCH DAY <30MIN LORAINE HARRIS DO Feb 13, 2025 14:48
[2025-02-13 15:02] VITALS: BP 129/73; PULSE 63; RESP 16; TEMP 98
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
[2025-02-13 19:00] VITALS: BP 111/63; PULSE 74; RESP 16; TEMP 98
[2025-02-13] MEDS ORDERED: ESCI10TA PO ×2 (19:12→19:16)
[2025-02-13 20:03] VITALS: BP 122/76; PULSE 75; RESP 20; TEMP 98; O2SAT 100
== END 2025-02-13 20:03 | disposition home or self-care (01) | DRG 560 ==
LOC: LDRP 13:10 → OBSVTOIN 13:30 → LDRP 14:02
PROVIDERS: ADMIT Obstetrics & Gynecology; ATTEND Obstetrics & Gynecology
PROC: 10E0XZZ Delivery of Products of Conception, External Approach (ICD-10-PCS; principal; 2025-02-12)
PROC: 0HQ9XZZ Repair Perineum Skin, External Approach (ICD-10-PCS; 2025-02-12)
PROC: 3E0R3BZ Introduction of Anesthetic Agent into Spinal Canal, Percutaneous Approach (ICD-10-PCS; 2025-02-12)
PROC: 00HU33Z Insertion of Infusion Device into Spinal Canal, Percutaneous Approach (ICD-10-PCS; 2025-02-12)
DX: O69.81X0 Labor and delivery complicated by cord around neck, without compression, not applicable or unspecified (principal); Z37.0 Single live birth; O60.14X0 Preterm labor third trimester with preterm delivery third trimester, not applicable or unspecified; F32.1 Major depressive disorder, single episode, moderate; F15.90 Other stimulant use, unspecified, uncomplicated; O99.324 Drug use complicating childbirth; Z3A.36 36 weeks gestation of pregnancy; O70.0 First degree perineal laceration during delivery; O99.345 Other mental disorders complicating the puerperium; F90.2 Attention-deficit hyperactivity disorder, combined type; F53.0 Postpartum depression
CPT/HCPCS: 36415; 59025; 59409; 62282; 76805; 80053; 80307; 81001; 81002; 85025; 85610; 85730; 86780; 86850; 86900; 86901; 94760; 96360; 96361; 96365; 96366; 96372; G0378; J2540; J2590; J7060